=== PATIENT | female | born 1955 | race Caucasian/White ===

== ENCOUNTER 2020-10-24 21:48 | Inpatient (IN) ==
[2020-10-24 22:26] LABS: Basophils # 0.1 10*3/uL (0.0-0.2); Basophils % 0.7 % (0.0-0.8); Eosinophils # 0.2 10*3/uL (0.0-0.87); Eosinophils % 1.5 % (0.00-10.9); Hematocrit 24.6 VOL% (35.7-47.0); Hemoglobin 8.2 GM/DL (12.0-16.0); Immature Granulocytes % 0.6 %; Immature Granulocytes Absolute 0.06 #; Lymphocytes # 3.4 10*3/uL (1.4-4.0); Mean Corpuscular HGB Conc 33.3 GM/DL (32-36); Mean Corpuscular Volume 89.5 FL (87-102); Mean Platelet Volume 10.2 FL (9.6-12.0); Monocytes % 5.3 % (1.7-12.7); Neutrophils % 59.9 % (38.7-73.9); Platelet Count 271 T/CUMM (130-400); Red Blood Count 2.75 MC/CUMM (3.8-5.5); Red Cell Distribution Width 15.1 % (9.3-17.3); White Blood Count 10.7 T/CUMM (4-12)
[2020-10-24 22:33] LABS: INR 1.1; Partial Thromboplastin Time 27.7 SECS (23.9-33.8)
[2020-10-24 22:53] LABS: Albumin 2.9 G/DL (3.4-5.0); Bilirubin,Total 0.9 MG/DL (0.2-1.0); Potassium 4.2 MMOL/L (3.5-5.1); Total Protein 5.2 G/DL (6.4-8.2)
[2020-10-24] MEDS ORDERED: PANTOPRAZOLE INJ 80 MG in SODIUM CHLORIDE 0.9% 100 ML IV ONE (22:55)
[2020-10-24] MEDS ORDERED: PANTOPRAZOLE 40 MG VIAL IV ONE ×2 (23:11→23:16)
[2020-10-24] MEDS ORDERED: SODIUM CHLORIDE 0.9% 1,000 ML IV STA (23:16)
[2020-10-24] MEDS ORDERED: ONDANSETRON 4 MG/2 ML VIAL IV PRN (23:50)
[2020-10-24] MEDS ORDERED: SODIUM CHLORIDE 0.9% 1,000 ML IV PRN (23:50)
[2020-10-24] MEDS ORDERED: DEXTROSE 50% 25 GM/50 ML VIAL IV PRN (23:50)
[2020-10-24] MEDS ORDERED: GLUCAGON 1 MG VIAL IM PRN (23:50)
[2020-10-25] MEDS: PANTOPRAZOLE INJ 200 MG in SODIUM CHLORIDE 0.9% 250 ML IV SCH (02:58)
[2020-10-25] MEDS: SODIUM CHLORIDE 0.9% 1,000 ML IV SCH ×3 (03:33→22:11)
[2020-10-25 06:33] LABS: Hematocrit 21.6 VOL% (35.7-47.0)
[2020-10-25 06:50] LABS: Calcium 8.5 MG/DL (8.5-10.1); Osmolality,Calculated 296.8 MOS/KG (273-304); Potassium 3.3 MMOL/L (3.5-5.1)
[2020-10-25] MEDS ORDERED: LORazepam 0.5 MG TABLET PO PRN (13:29)
[2020-10-25 17:28] LABS: Hematocrit 28.9 VOL% (35.7-47.0)
[2020-10-25 17:31] LABS: Hemoglobin 9.8 GM/DL (12.0-16.0)
[2020-10-25 19:40] LABS: Hematocrit 27.8 VOL% (35.7-47.0); Hemoglobin 9.5 GM/DL (12.0-16.0)
[2020-10-25] MEDS: ARIPiprazole 5 MG TABLET PO SCH (20:33)
[2020-10-25] MEDS: carvediloL 25 MG TABLET PO SCH (20:33)
[2020-10-25] MEDS: ATORVASTATIN 40 MG TABLET PO SCH (20:34)
[2020-10-25] MEDS: amLODIPine 5 MG TABLET PO SCH (20:34)
[2020-10-25] MEDS: DESVENLAFAXINE 50 MG TABLET PO SCH (20:34)
[2020-10-26 00:39] LABS: Calcium 8.2 MG/DL (8.5-10.1); Osmolality,Calculated 292.6 MOS/KG (273-304); Potassium 3.1 MMOL/L (3.5-5.1)
[2020-10-26 00:54] LABS: Basophils # 0.1 10*3/uL (0.0-0.2); Basophils % 0.6 % (0.0-0.8); Eosinophils # 0.2 10*3/uL (0.0-0.87); Eosinophils % 1.7 % (0.00-10.9); Hematocrit 27.5 VOL% (35.7-47.0); Hemoglobin 9.2 GM/DL (12.0-16.0); Immature Granulocytes % 2.2 %; Immature Granulocytes Absolute 0.27 #; Lymphocytes % 24.2 % (21.3-54.2); Mean Corpuscular HGB Conc 33.5 GM/DL (32-36); Mean Corpuscular Volume 89.3 FL (87-102); Monocytes % 7.1 % (1.7-12.7); Neutrophils % 64.2 % (38.7-73.9); Platelet Count 181 T/CUMM (130-400); Red Blood Count 3.08 MC/CUMM (3.8-5.5); Red Cell Distribution Width 15.5 % (9.3-17.3); White Blood Count 12.6 T/CUMM (4-12)
[2020-10-26] MEDS: PANTOPRAZOLE INJ 200 MG in SODIUM CHLORIDE 0.9% 250 ML IV SCH (03:24)
[2020-10-26] MEDS ORDERED: MAGNESIUM SULF RIDER 4 GM/100 ML PREMIX IV PRN (07:40)
[2020-10-26] MEDS ORDERED: MAGNESIUM SULF RIDER 2 GM/50 ML PREMIX IV PRN (07:40)
[2020-10-26] MEDS: POTASSIUM CHLORIDE 20 MEQ TABLET PO PRN ×4 (09:16→15:33)
[2020-10-26] MEDS: CHOLECALCIFEROL 5,000 UNIT TABLET PO SCH (09:16)
[2020-10-26] MEDS: carvediloL 25 MG TABLET PO SCH ×2 (09:16→20:36)
[2020-10-26] MEDS: ARIPiprazole 5 MG TABLET PO SCH (20:36)
[2020-10-26] MEDS: DESVENLAFAXINE 50 MG TABLET PO SCH (20:36)
[2020-10-26] MEDS: ATORVASTATIN 40 MG TABLET PO SCH (20:36)
[2020-10-26] MEDS: amLODIPine 5 MG TABLET PO SCH (20:36)
[2020-10-26] MEDS: ACETAMINOPHEN 325 MG TABLET PO PRN (21:59)
[2020-10-27] MEDS: PANTOPRAZOLE INJ 200 MG in SODIUM CHLORIDE 0.9% 250 ML IV SCH (04:02)
[2020-10-27 05:04] LABS: Basophils # 0.1 10*3/uL (0.0-0.2); Basophils % 0.7 % (0.0-0.8); Eosinophils # 0.4 10*3/uL (0.0-0.87); Eosinophils % 4.1 % (0.00-10.9); Hematocrit 25.7 VOL% (35.7-47.0); Hemoglobin 8.8 GM/DL (12.0-16.0); Immature Granulocytes % 1.1 %; Immature Granulocytes Absolute 0.09 #; Lymphocytes # 2.2 10*3/uL (1.4-4.0); Lymphocytes % 26.3 % (21.3-54.2); Mean Corpuscular HGB Conc 34.2 GM/DL (32-36); Mean Corpuscular Volume 88.9 FL (87-102); Mean Platelet Volume 10.3 FL (9.6-12.0); Monocytes % 8.4 % (1.7-12.7); Neutrophils % 59.4 % (38.7-73.9); Platelet Count 168 T/CUMM (130-400); Red Blood Count 2.89 MC/CUMM (3.8-5.5); Red Cell Distribution Width 15.2 % (9.3-17.3); White Blood Count 8.5 T/CUMM (4-12)
[2020-10-27 05:19] LABS: Calcium 8.5 MG/DL (8.5-10.1); Osmolality,Calculated 292.3 MOS/KG (273-304); Potassium 3.7 MMOL/L (3.5-5.1)
[2020-10-27] MEDS: SODIUM CHLORIDE 0.9% 1,000 ML IV SCH (05:47)
[2020-10-27] MEDS: carvediloL 25 MG TABLET PO SCH ×2 (08:57→20:51)
[2020-10-27] MEDS: CHOLECALCIFEROL 5,000 UNIT TABLET PO SCH (08:57)
[2020-10-27] MEDS: ACETAMINOPHEN 325 MG TABLET PO PRN (16:15)
[2020-10-27] MEDS: ATORVASTATIN 40 MG TABLET PO SCH (20:51)
[2020-10-27] MEDS: DESVENLAFAXINE 50 MG TABLET PO SCH (20:51)
[2020-10-27] MEDS: ARIPiprazole 5 MG TABLET PO SCH (20:51)
[2020-10-27] MEDS: amLODIPine 5 MG TABLET PO SCH (20:51)
[2020-10-27] MEDS ORDERED: ZALEPLON 5 MG CAPSULE PO ONE (22:56)
[2020-10-28 06:49] LABS: Basophils # 0.1 10*3/uL (0.0-0.2); Basophils % 0.5 % (0.0-0.8); Eosinophils # 0.5 10*3/uL (0.0-0.87); Eosinophils % 4.4 % (0.00-10.9); Hematocrit 25.3 VOL% (35.7-47.0); Hemoglobin 8.3 GM/DL (12.0-16.0); Immature Granulocytes % 0.6 %; Immature Granulocytes Absolute 0.06 #; Lymphocytes # 2.7 10*3/uL (1.4-4.0); Lymphocytes % 26.8 % (21.3-54.2); Mean Corpuscular HGB Conc 32.8 GM/DL (32-36); Mean Platelet Volume 10.1 FL (9.6-12.0); Monocytes % 7.6 % (1.7-12.7); Neutrophils % 60.1 % (38.7-73.9); Platelet Count 171 T/CUMM (130-400); Red Blood Count 2.75 MC/CUMM (3.8-5.5); Red Cell Distribution Width 15.4 % (9.3-17.3); White Blood Count 10.2 T/CUMM (4-12)
[2020-10-28 07:04] LABS: Calcium 8.6 MG/DL (8.5-10.1); Osmolality,Calculated 285.7 MOS/KG (273-304); Potassium 3.8 MMOL/L (3.5-5.1)
[2020-10-28] MEDS ORDERED: LACTATED RINGERS 1,000 ML IV SCH (09:30)
[2020-10-28] MEDS ORDERED: LIDOCAINE 2% 5 ML VIAL ONE (09:58)
[2020-10-28] MEDS ORDERED: propofoL 200 MG/20 ML VIAL IV ONE (09:58)
[2020-10-28] MEDS: CHOLECALCIFEROL 5,000 UNIT TABLET PO SCH (11:06)
[2020-10-28] MEDS: carvediloL 25 MG TABLET PO SCH (11:06)
[2020-10-28] MEDS: PANTOPRAZOLE INJ 200 MG in SODIUM CHLORIDE 0.9% 250 ML IV SCH (12:26)
[2020-10-28 16:11] VITALS: BP 155/48
== END 2020-10-28 17:15 | disposition home or self-care (01) | DRG 813 ==
LOC: N.ED 21:48 → N.EDINP 21:48 → N.4E 10-25 01:17
PROVIDERS: ADMIT Internal Medicine; ATTEND Internal Medicine